=== PATIENT | male | born 1955 | race Caucasian/White ===

== ENCOUNTER → 2016-02-25 | Outpatient (CLI) | payer OTHER ==
--- NOTE | 2016-02-25 16:21 | MRI ---
Study: MRI of the Right Knee. Indication: KNEE PAIN Technique: Multiplanar, multi sequence MRI of the right knee was obtained without intravenous contrast. Comparison: None. Findings: Pronounced mucoid degeneration ACL without acute tear. PCL, lateral collateral ligament complex intact. Remote MCL sprain without acute tear. Maceration posterior horn/root and body medial meniscus with 5 mm of extrusion of the body. Free edge fraying throughout the lateral meniscus. Severe medial compartment osteoarthritis with extensive grade 4 chondral loss, significant cortical remodeling, and patchy subchondral marrow change throughout. Grade 3/4 chondrosis of the central to medial weight-bearing portions of the lateral compartment noted. Mild button osteophyte formation of the central aspect of the lateral femoral condyle noted. Insertional quadriceps tendinosis without tear. Patellar tendon intact. Patella normally located. Extensive grade 4 chondral loss inferior half of the patellar apex with extensive button osteophyte formation at this site. There is adjacent extensive grade 3 and 4 chondrosis throughout the medial and midline femoral trochlea as well. Moderate tricompartmental joint line osteophytes. Moderate size knee effusion with scattered synovitis/debris. Moderate size multiloculated Parra's cyst. No acute fracture or osseous contusion. Impression: Severe medial compartment osteoarthritis with moderate to severe changes of the lateral and patellofemoral compartments. Maceration medial meniscus. Free edge fraying throughout the lateral meniscus. Mucoid degeneration ACL. Remote MCL sprain. Moderate size knee effusion with scattered synovitis/ debris. Electronically signed by: Adryan Arriaga MD 02/25/2016 16:19
== END ==
LOC: MRI 12:57
DX: M17.11 Unilateral primary osteoarthritis, right knee (principal); S83.411A Sprain of medial collateral ligament of right knee, initial encounter

== ENCOUNTER → 2016-03-09 | Outpatient (CLI) | payer OTHER | LOC: GMAB 10:48 | PROVIDERS: ATTEND Family Medicine | DX: Z00.01 Encounter for general adult medical examination with abnormal findings (principal); D69.6 Thrombocytopenia, unspecified ==

== ENCOUNTER → 2016-04-11 | Outpatient (CLI) | payer OTHER | END | disposition home or self-care (01) | LOC: GMAB 17:01 | PROVIDERS: ATTEND Family Medicine | DX: D69.49 Other primary thrombocytopenia (principal) ==

== ENCOUNTER → 2016-05-16 | Outpatient (CLI) | payer BC, OTHER ==
--- NOTE | 2016-05-19 07:59 | CT ---
EXAM DESCRIPTION: Abdomen w/Contrast CLINICAL HISTORY: ABNORMAL LIVER FUNCTION STUDY COMPARISON: None. TECHNIQUE: Postcontrast CT images of the abdomen are obtained. CT scan done according to ALARA (As Low As Reasonably Achievable). FINDINGS: Visualized lung bases show no acute findings. The right lobe of the liver measures 17.8 cm AP at the right mid clavicular line which is enlarged. No focal hepatic mass is identified. Spleen is mildly enlarged measuring 13.1 x 14.0 cm. Pancreas, adrenal glands, and mildly contracted gallbladder are unremarkable. Mild atherosclerotic disease. There is a nonobstructing 10 mm calcification in the midpole calyx of the left kidney. Less than 1 cm renal cortical cysts are seen bilaterally. Extrarenal pelvis of the left kidney is noted. Changes to the stomach are seen. Visualized small bowel and colon show no acute findings. No pathologically enlarged lymphadenopathy. Osseous structures show no aggressive bony lesions. Mild spondylitic changes of the spine are seen. IMPRESSION: Mild enlargement of the liver. No focal hepatic mass. Spleen is mildly enlarged. The main portal vein is borderline enlarged at 16 mm Postsurgical changes to the stomach are seen. Nonobstructing left nephrolithiasis. Electronically signed by: Koby Collins MD 05/19/2016 7:58 AM CDT
== END | disposition home or self-care (01) ==
LOC: CT 09:27
PROVIDERS: ATTEND Internal Medicine Hematology & Oncology
DX: D69.6 Thrombocytopenia, unspecified (principal)

== ENCOUNTER → 2016-05-17 | Outpatient (CLI) | payer BC | END | disposition home or self-care (01) | LOC: GMAB 11:16 | PROVIDERS: ATTEND Family Medicine | DX: E29.1 Testicular hypofunction (principal) ==

== ENCOUNTER → 2017-06-14 | Outpatient (CLI) | payer BC | LOC: GMAB 11:14 | PROVIDERS: ATTEND Family Medicine | DX: N42.9 Disorder of prostate, unspecified (principal) ==

== ENCOUNTER → 2017-08-17 | Outpatient (CLI) | payer BC | LOC: GMAB 11:56 | PROVIDERS: ATTEND Family Medicine | DX: Z00.01 Encounter for general adult medical examination with abnormal findings (principal) ==

== ENCOUNTER → 2018-04-30 | Outpatient (CLI) | payer BC | LOC: GMAE 14:21 | PROVIDERS: ATTEND Family Medicine | DX: R94.5 Abnormal results of liver function studies (principal) ==

== ENCOUNTER → 2018-05-01 | Outpatient (CLI) | payer BC ==
--- NOTE | 2018-05-01 19:51 | US ---
EXAM DESCRIPTION: Liver: ULTRASOUND. CLINICAL HISTORY: ABNORMAL RESULTS OF LIVER FUNCTION STUDIES COMPARISON: Ultrasound liver 03/11/2013.. CT abdomen with contrast 05/19/2016. TECHNIQUE: Transabdominal scannin-dimensional and Doppler modes.. Technically difficult study due to patient body habitus. FINDINGS: Gallbladder: normal size, shape, echogenicity; no intraluminal stones or sludge. No fluid around the gallbladder. No wall thickening. 2.2 mm. Non-tender with transducer pressure. Common bile duct: caliber 5.2 mm within normal limits. Liver: Increased echogenicity; there is dense and posterior liver and structures posterior to the liver are difficult to visualize. Contour liver capsule smooth where seen. No fluid around the liver. Intrahepatic biliary ducts normal caliber. Doppler hepatopedal flow portal vein. Long axis right lobe 15.5 cm per. Pancreas: Not well visualized. Duct not seen. Right kidney: long axis measures 11.2 cm. Normal echogenicity. Normal cortical thickness. No hydronephrosis IMPRESSION: Technically difficult study as previously discussed. Gallbladder, common bile duct, and right kidney are unremarkable. Fatty liver but no enlargement. Normal vascularity. No intrahepatic biliary dilatation. No ascites. Fatty liver seen on prior CT scan from 2016 and ultrasound scan from 2013 Electronically signed by: Babar Vegas MD 05/01/2018 7:48 PM CDT
== END ==
LOC: US 09:05
PROVIDERS: ATTEND Family Medicine
DX: R94.5 Abnormal results of liver function studies (principal); K76.0 Fatty (change of) liver, not elsewhere classified

== ENCOUNTER → 2018-05-14 | Outpatient (CLI) | payer BC ==
--- NOTE | 2018-05-14 11:07 | RAD ---
EXAM DESCRIPTION: Knee,Right Complete CLINICAL HISTORY: 62 years Male, M25.561 COMPARISON: None. FINDINGS: Four views of the right knee were obtained. No acute fracture or malalignment is seen. Moderately advanced tricompartmental degenerative changes are noted including joint space narrowing and osteophyte formation, worse in the medial and patellofemoral compartments. No significant right knee joint effusion. The soft tissues are unremarkable. IMPRESSION: Moderately advanced tricompartmental degenerative changes, worse in the medial and patellofemoral compartments. Electronically signed by: Denilson Lua MD 05/14/2018 11:04 AM CDT
== END ==
LOC: RAD 09:02
PROVIDERS: ATTEND Orthopaedic Surgery
DX: M17.11 Unilateral primary osteoarthritis, right knee (principal)

== ENCOUNTER → 2018-09-11 | Outpatient (CLI) | payer BC, OTHER ==
--- NOTE | 2018-09-11 14:03 | MRI ---
EXAM DESCRIPTION: Brain w/wo Contrast: Magnetic Resonance Imaging. CLINICAL HISTORY: 63 years Male EPILEPSY G40.219 COMPARISON: None. TECHNIQUE: Multiplanar, high-field MRI, multiple conventional sequences, without and with gadolinium IV contrast. No adverse reactions. Multiple axial diffusion sequences. FINDINGS: On the diffusion-weighted SB 1000 DWI sequence there is minimally bright signal on one image on the left side of the brainstem between the inferior brock in the left superior lingula (image 5). This signal is low density on the ADC map. This would indicate diffusion restriction. Slightly brighter than the surrounding brain on the SB 0 DWI sequence. No focal abnormalities on the conventional sequences with no hemorrhage, mass effect, and no contrast enhancement. Heterogeneous minimally hyperintense FLAIR and T2-weighted signal in the superior lópez radiata of the bilateral frontal and parietal lobes and in the bilateral centrum semiovale of these lobes. No diffusion restriction, hemorrhage, or abnormal contrast enhancement.. Normal signal in the bilateral basal ganglia. No hemorrhage, no cerebral edema, no mass-effect. Normal contrast enhancement. Concordance of the diffusion and non-diffusion sequences elsewhere in the brain, with no evidence of acute or subacute infarction. Cortical sulci, ventricles, and other CSF spaces, and the subdural spaces are slightly prominent for patient's age. No effacement or displacement. No midline shift. No extra-axial hemorrhage. Normal contrast enhancement. Normal flow signal void in the major vessels of the [place], and the venous sinuses. IACs are symmetric bilaterally. Normal signal in the bilateral mastoid air cells. No mass effect in the bilateral Cerebellopontine angles. Normal contrast enhancement. Pituitary gland occupies most of the sella. Normal contrast enhancement. Base of the cerebellar tonsils is at the level of the foramen magnum. Normal signal in the bilateral paranasal sinuses. The bony calvarium is intact. IMPRESSION: 1. Diffusion restriction noted in the left brainstem at the junction between the inferior brock and the superior medulla. No correlation with hemorrhage, mass effect, or abnormal contrast enhancement on the other conventional sequences. Correlate with focal neurologic findings. 2. Minimal age-related changes in the periventricular white matter and centrum semiovale of the bilateral frontal and parietal lobes. No diffusion restriction in the cerebral hemispheres or supratentorial midbrain. Electronically signed by: Babar Vegas MD 09/11/2018 2:01 PM CDT
== END ==
LOC: MRI 08:26
PROVIDERS: ATTEND Specialist
DX: G40.219 Localization-related (focal) (partial) symptomatic epilepsy and epileptic syndromes with complex partial seizures, intractable, without status epilepticus (principal)

== ENCOUNTER 2020-01-20 00:53 | Emergency (ER) | payer BC ==
[2020-01-20] MEDS ORDERED: KETOROLAC TROMETHAMINE INJ 30 MG/ML VIAL IM ONE (01:59)
--- NOTE | 2020-01-20 01:59 | RAD ---
RIGHT SCAPULA, SINGLE VIEW, XR. CLINICAL HISTORY: Pain after fall. COMPARISON: None. TECHNIQUE: Single lateral view of the right scapula. FINDINGS: There is no definite scapula fracture. There is no glenohumeral dislocation. There is a complex acute distal right clavicle fracture. IMPRESSION: 1. Negative right scapula. 2. Acute distal right clavicle fracture. Electronically signed by: Katie Roldan DO 01/20/2020 1:58 AM [facility]
--- NOTE | 2020-01-20 02:00 | RAD ---
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 FINDINGS: 2 X-ray views of the right shoulder were performed. There is fracture along the distal shaft clavicle/clavicular portion of the AC joint. The glenohumeral joint demonstrate to be unremarkable with no evidence for subluxation and/or dislocation. IMPRESSION: FRACTURE DISTAL PORTION OF THE CLAVICLE AT TE LEVEL OF THE RIGHT AC JOINT. Electronically signed by: Duc Arrington MD 01/20/2020 1:59 AM [employer] SIGNAL MECH[employer]IC
--- NOTE | 2020-01-20 02:01 | RAD ---
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 FINDINGS: 2 X-ray views of the right humerus were performed. No areas of acute bony injuries were demonstrated. No gross articular or soft tissue abnormality is identified. There are no gross intraosseous lesions. No periosteal reaction were seen. Grossly the elbow joint demonstrate to be unremarkable. IMPRESSION: NO EVIDENCE FOR FRACTURE OR DISLOCATION AT THE RIGHT HUMERUS. Electronically signed by: Duc Arrington MD 01/20/2020 2:00 AM GATE SUPERVISOR
--- NOTE | 2020-01-20 02:06 | ED.PDOC ---
History of Present Illness - General Chief Complaint: Trauma Stated Complaint: right shoulder pain after fall Time Seen by Provider: 01/20/20 01:01 Source: patient Exam Limitations: no limitations - History of Present Illness Initial Comments: The patient is a 64-year-old male presented emergency room secondary to having tripped and fallen and landed on his right shoulder. He has pain towards the end of the clavicle. He does appear to be neurovascularly preserved. No lacerations. No significant deformity at this point. No other injury. Timing/Duration: 1/2 hour Severity: moderate Improving Factors: immobilization Worsening Factors: movement Associated Symptoms: denies symptoms Allergies/Adverse Reactions: Allergies NO KNOWN ALLERGY Allergy (Verified 01/20/20 01:10) Home Medications: Ambulatory Orders Qynjpxmckrbud-Aigd-Gashknpwfg [Fioricet] 1 ea PO Q8H PRN #21 tab 01/20/20 Meloxicam 15 mg PO DAILY 01/20/20 Secukinumab [Cosentyx Sensoready Pen] .QMONTHLY 01/20/20 Review of Systems - Review of Systems Constitutional: States: no symptoms reported EENTM: States: no symptoms reported Respiratory: States: no symptoms reported Cardiology: States: no symptoms reported Gastrointestinal/Abdominal: States: no symptoms reported Genitourinary: States: no symptoms reported Musculoskeletal: States: see HPI Skin: States: no symptoms reported Neurological: States: no symptoms reported Endocrine: States: no symptoms reported All other Systems: No Change from Baseline Past Medical History (General) - Patient Medical History Hx Seizures: No Hx Stroke: No Hx Dementia: No Hx Asthma: No Hx of COPD: No Hx Cardiac Disorders: No Hx Congestive Heart Failure: No Hx Pacemaker: No Hx Hypertension: Yes - treated by weightloss Hx Thyroid Disease: No Hx Diabetes: Yes - treated by weightloss Hx Gastroesophageal Reflux: No Hx Renal Disease: No Hx Cancer: No Hx of HIV: No Hx Hepatitis C: No Hx MRSA: No Surgical History: other - Vaccination History Hx Tetanus, Diphtheria Vaccination: No Hx Influenza Vaccination: Yes Hx Pneumococcal Vaccination: Yes - Social History Hx Chewing Tobacco Use: Yes - 20 years ago Hx Alcohol Use: Yes - occasional Family Medical History - Family History Mother Family History: Unknown Physical Exam - Physical Exam General Appearance: Alert, Comfortable, No apparent distress Eye Exam: bilateral normal Ears, Nose, Throat: hearing grossly normal Neck: non-tender, supple Respiratory: no respiratory distress, no accessory muscle use Cardiovascular/Chest: normal peripheral pulses, no edema Peripheral Pulses: radial,right: 2+, radial,left: 2+ Gastrointestinal/Abdominal: non tender, soft Rectal Exam: deferred Extremity: no pedal edema, normal capillary refill, other - Normal passive range of motion of the right shoulder. Neurologic: alert, normal mood/affect, oriented x 3 Skin Exam: normal color Comments: Vital Signs - 24 hr 01/20/20 00:55 Temperature 95.6 F L Pulse Rate [ 81 monitor] Respiratory 20 Rate Blood Pressure 152/79 [Left Arm] O2 Sat by Pulse 96 Oximetry Progress - Progress Progress: 01/20/20 02:06 The patient is a 64-year-old male presented emergency room secondary to a fall at home in which he sustained a fracture to the distal end of the right clavicle. The patient will be written for Fioricet for pain relief if needed. Additionally he can take 2 Aleve twice daily for the next week. He does need to have a repeat x-ray of the clavicle in 7 to 10 days to confirm the start of appropriate healing. I would like him to follow-up with Dr. Sullivan or an orthopedist of his choice for that. For now the patient will be placed in a shoulder immobilizer or sling. ER warnings are given. Ambulate carefully to prevent further falls. [email or web address] [id number] - Results/Orders Results/Orders: X-ray of the right humerus is negative. X-ray of the right scapula is negative. Right clavicle shows a complex fracture at the distal end of the clavicle. Minimal displacement. - EKG/XRAY/CT CT Ordered: No Departure - Departure Clinical Impression: Fracture, clavicle Qualifiers: Encounter type: initial encounter Clavicle location: lateral end Fracture type: closed Fracture alignment: nondisplaced Laterality: right Qualified Code(s): S4 2.034A - Nondisplaced fracture of lateral end of right clavicle, initial encounter for closed fracture Disposition: Discharge to Home or Self Care Condition: Fair Departure Forms: ED Discharge - Pt. Copy, Patient Portal Self Enrollment Diet: regular diet Activity: no pushing/pulling with affected limb Referrals: PATRICE CORDOVA MD [Primary Care Provider] - 1-2 Weeks Prescriptions: Fqekylwhsewij-Bglh-Jdqjimjqda [Fioricet] 1 ea PO Q8H PRN #21 tab PRN Reason: Pain Home Medications: Ambulatory Orders Hsuzfgllasczd-Qcio-Ltwaybpedq [Fioricet] 1 ea PO Q8H PRN #21 tab 01/20/20 Meloxicam 15 mg PO DAILY 01/20/20 Secukinumab [Cosentyx Sensoready Pen] .QMONTHLY 01/20/20 Additional Instructions: The patient is a 64-year-old male presented emergency room secondary to a fall at home in which he sustained a fracture to the distal end of the right clavicle. The patient will be written for Fioricet for pain relief if needed. Additionally he can take 2 Aleve twice daily for the next week. He does need to have a repeat x-ray of the clavicle in 7 to 10 days to confirm the start of appropriate healing. I would like him to follow-up with Dr. Sullivan or an orthopedist of his choice for that. For now the patient will be placed in a shoulder immobilizer or sling. ER warnings are given. Ambulate carefully to prevent further falls.
[2020-01-20 02:25] VITALS: BP 129/77; O2SAT 97
[2020-01-20 02:27] VITALS: TEMP 97.7
== END 2020-01-20 02:28 | disposition home or self-care (01) ==
LOC: ER 00:53
DX: S42.031A Displaced fracture of lateral end of right clavicle, initial encounter for closed fracture (principal); Z87.891 Personal history of nicotine dependence; W01.0XXA Fall on same level from slipping, tripping and stumbling without subsequent striking against object, initial encounter; Y92.009 Unspecified place in unspecified non-institutional (private) residence as the place of occurrence of the external cause
CPT/HCPCS: 73010; 73030; 73060; 93005; J1885

== ENCOUNTER → 2020-02-27 | Outpatient (CLI) | payer BC ==
--- NOTE | 2020-02-27 10:52 | RAD ---
EXAM DESCRIPTION: Clavicle,Right CLINICAL HISTORY: CLOSED FX COMPARISON: 20 January 2020 TECHNIQUE: 2 views FINDINGS: A comminuted fracture of the distal clavicle is observed. No significant callus formation is detected. The distal acromion is unremarkable. IMPRESSION: Comminuted fracture of the distal clavicle is observed without significant callus formation. Electronically signed by: Duc Kee MD 02/27/2020 10:50 AM [facility]
== END ==
LOC: RAD 07:22
PROVIDERS: ATTEND Orthopaedic Surgery
DX: S42.034D Nondisplaced fracture of lateral end of right clavicle, subsequent encounter for fracture with routine healing (principal)